=== PATIENT | female | born 1950 | race Two or more races ===

== ENCOUNTER 2022-06-09 10:17 | Outpatient (CLI) | payer OTHER | END 2022-06-09 23:59 | disposition home or self-care (01) | LOC: LAB 10:17 | PROVIDERS: ATTEND Specialist | DX: Z01.812 Encounter for preprocedural laboratory examination (principal); Z20.822 Contact with and (suspected) exposure to COVID-19 | CPT/HCPCS: U0003; C9803 ==

== ENCOUNTER 2022-06-16 10:19 | Day surgery (SDC) | payer OTHER ==
[2022-06-16] MEDS ORDERED: EPINEPHRINE (1:1000) 1 MG/ML AMPUL ONE (11:21)
[2022-06-16] MEDS ORDERED: methylPREDNISolone ACETATE 80 MG/ML VIAL ONE (11:21)
[2022-06-16] MEDS ORDERED: BUPIVACAINE 0.25% 75 MG/30 ML VIAL ONE (11:21)
[2022-06-16] MEDS ORDERED: HYDROMORPHONE INJ 2 MG/ML DISP.SYRIN ONE (11:26)
[2022-06-16] MEDS ORDERED: KETOROLAC TROMETHAMINE INJ 30 MG/ML VIAL ONE (11:26)
[2022-06-16] MEDS ORDERED: ROCURONIUM BROMIDE 50 MG/5 ML ONE (11:26)
[2022-06-16] MEDS ORDERED: BUPIVACAINE 0.5 % PF 150 MG/30 ML VIAL ONE (11:26)
[2022-06-16] MEDS ORDERED: HYDROCODONE/APAP 5/325MG TABLET PO PRN ×2 (14:00)
== END 2022-06-16 15:30 | disposition home or self-care (01) ==
LOC: DS 10:19
PROVIDERS: ATTEND Specialist
DX: M75.41 Impingement syndrome of right shoulder (principal); I10 Essential (primary) hypertension; E11.9 Type 2 diabetes mellitus without complications; E66.01 Morbid (severe) obesity due to excess calories; Z98.890 Other specified postprocedural states; Z79.899 Other long term (current) drug therapy
CPT/HCPCS: 29824; 93005; 29826; J0690; J3490 ×4; J1040; J1100; J2704; J0171; J1170; J1885; J2405; J7030; A4217; A4565